=== PATIENT | male | born 1965 | race Caucasian/White ===

== ENCOUNTER 2024-08-23 14:52 | Outpatient (AMB) | payer OTHER, SELFPAY ==
--- NOTE | 2024-08-23 14:56 | MHC.PC.OV ---
Vital Signs 08/23/24 15:03 Height 5 ft 9.29 in Weight 241 lb BMI 35.3 BP 108/80 Blood Pressure Location Lt brachial Position Sitting Respiration 14 Pulse 73 Pulse Source Pulse Oximeter Pulse Oximetry (%) 96 Oxygen Delivery Method Room Air Intake Visit Reasons: [facility] / [facility] (get ins) Intake Note: New patient visit. Requesting test/referral for Parkinson Buttonhole Marker Required: No Allergies codeine Allergy (Unknown, Verified 08/23/24 14:57) Unknown Medication List - Last Reconciled 08/23/24 by Zarina Infante PA-C No Known Home Meds Tobacco use date assessed: 08/23/24 Dental Screening Dental Screen Date: 08/23/24 Did you have a dental visit in the last 12 months?: Yes Did you have a dental problem in the last 6 months where you did not have access to dental care?: No Was dental information given to patient?: Patient has dentist HPI [facility] / [facility] (get ins) HPI Details Patient is a 58-year-old male who presents [facility] to [facility] He is transferring from [facility]. He has a significant past medical history of per pt previous TIA about 10 years ago (but never got this investigated) , hyperlipidemia, prediabetes and anxiety. Neuro: When I last saw him I did refer him to Neurology for memory issues and he states that they did call him but he never followed up with this. This was a couple years ago. He also was referred to the counselor at the time for a Reading test but this was never completed. He states that he still does struggle at times with remembering things. He does not get lost in his able to function at work but finds himself forgetting where he put things and sometimes what he meant to say. He tells me today that he is worried that he could have dementia/Parkinson's. He has noted tremors for the last couple years and states over the last year he is having a bit more tremors. He is dropping things. He does feel uncoordinated at times but it gets better. He is a very vague historian. He had an MRI 12/17/2022 Impression: Mild supratentorial white matter signal abnormality compatible with chronic microangiopathic/small-vessel ischemic change. No evidence of parenchymal volume loss/ atrophy. He states that years ago when he had those stroke like symptoms he did not bother going to the hospital because it was very short and fleeting. He states that he was driving when all of a sudden his face felt droopy and he had garbled speech. He states that he raised his left arm above his head in the symptoms resolved. He did not think much of this other than he had just had a stroke. He states that people probably would have thought he was taking it so he did not do anything with this. His brother has Parkinson and his father passed Parkinsons at 72. CV: Blood pressure today in the office is 108/80. Psych: Has a history of anxiety and states that this is currently related to financial stress/burden and his job. In the winter his job is slow but it was now just picking up. He states that he has to travel for his job in its stresses him to leave his at home. He is not interested in medication. Colonoscopy: He was referred in 2022 but never did this. PSA: Overdue [facility] Medical History (Updated 08/23/24 @ 15:22 by Zarina Infante PA-C) Fusion of fingers of left hand Severe obesity (BMI 35.0-35.9 with comorbidity) Prediabetes Hyperlipidemia Surgical History (Updated 08/23/24 @ 14:13 by Jocelyn Ayala CMA) No pertinent past surgical history Family History (Updated 08/23/24 @ 15:07 by Jocelyn Ayala CMA) Mother Alzheimer disease Father Diabetes Mental disability Parkinsons disease FH: mental illness Brother Substance use Social History Housing: House Alcohol intake: current Patient Tobacco Use Status: Former Tobacco user Cigarettes Per Day: 6 Years Smoked: 12 e-Cigarette/Vaping Use: Never Used Second Hand Smoke Exposure: No service: No Current occupational status: employed and unemployed Current occupational exposures/hazards: No Cognitive needs: No Hearing needs: No Vision needs: Yes (glasses) Questionnaire PHQ-9 Over the last 2 weeks, how often have you been bothered by any of the following problems? 1. Little interest or pleasure in doing things: not at all 2. Feeling down, depressed, or hopeless: not at all 3. Trouble falling or staying asleep, or sleeping too much: not at all 4. Feeling tired or having little energy: not at all 5. Poor appetite or overeating: not at all 6. Feeling bad about yourself - or that you are a failure or have let yourself or your family down: not at all 7. Trouble concentrating on things, such as reading the newspaper or watching television: not at all 8. Moving or speaking so slowly that other people could have noticed. Or the opposite - being so fidgety or restless that you have been moving around a lot more than usual: not at all 9. Thoughts that you would be better off or of hurting yourself in some way: not at all Total score: 0 Depression Screening Interpretation: Negative Depression Screening Done: Yes 85452 - PHQ-9 Billing: Yes Source: Developed by Drs. Cas Delgadillo, Gabbi Balderas, Elijah Baez and colleagues, with an educational renetta from [employer]. Thrive Questionnaire Date Thrive assessed: 08/23/24 I am a: Patient What is your living situation today?: I have a steady place to live Within the past 12 months, did the food you bought not last and you didn't have the money to get more?: Sometimes True Within the past 12 months, did you worry whether your food would run out before you got money to buy more?: Sometimes True Do you have trouble paying for medicines?: I choose not to answer this question Do you have trouble getting transportation to medical appointments?: No Do you have trouble paying your heating and electricity bill?: Yes Do you have trouble taking care of your child, family member or friend?: I choose not to answer this question Do you have trouble with day-to-day activities such as bathing, preparing meals, shopping, managing finances, etc.?: No Are you currently unemployed and looking for a job?: Yes Are you interested in more education?: No Please select the resources that you would like help with: Utilities Currently or been in a relationship where the following occur: I choose not to answer THRIVE Score: 3 AUDIT C Alcohol Use Questionnaire (AUDIT-C) 1. How often do you have a drink containing alcohol?: 2-4 times a month 2. How many drinks containing alcohol do you have on a typical day when you are drinking?: 3 or 4 3. How often do you have six or more drinks on one occasion?: Less than monthly Total Score: 4 MONIK-7 AMB Questionnaire MONIK-7 Date MONIK - 7 assessed: 08/23/24 Feeling nervous, anxious, or on edge: 0 = Not at all Not being able to stop or control worryin = More than half the days Worrying too much about different things: 2 = More than half the days Trouble relaxin = More than half the days Being so restless that it is hard to sit still: 0 = Not at all Becoming easily annoyed or irritable: 2 = More than half the days Feeling afraid as if something awful might happen: 2 = More than half the days Total MONIK-7 score (0-4 normal; 5-9 mild; 10-14 moderate; 15-21 severe): 10 Source: Developed by Drs. Cas Delgadillo, Gabbi Balderas, Elijah Baez and colleagues, with an educational renetta from [employer]. MONIK-7 Assessment Billing MONIK-7 Assessment Tool: MONIK-7 Assessment 31756 Physical exam (Primary Care) Vital Signs: Last Vital Signs Pulse 73 08/23/24 15:03 Resp 14 08/23/24 15:03 BP 108/80 08/23/24 15:03 Pulse Ox 96 08/23/24 15:03 Oxygen Delivery Method Room Air 08/23/24 15:03 BMI result Body Mass Index 35.3 Tobacco/Smoking Status: Tobacco use Status Tobacco use date assessed 08/23/24 08/23/24 15:02 Patient Tobacco Use Status Former Tobacco user 08/23/24 15:02 e-Cigarette/Vaping Use Never Used 08/23/24 15:02 PHQ-9: PHQ-9 Score PHQ-9: Total score 0 08/23/24 15:02 Depression Screening Interpretation: Negative Currently or been in a relationship where the following occur: I choose not to answer Const Orientation/consciousness: patient oriented x3 HENMT Ears: hearing grossly normal bilaterally Neck Thyroid: Thyroid normal Lymphatic: no lymphadenopathy noted Resp Auscultation: clear to auscultation bilaterally Cardio Rate: regular rate Rhythm: regular rhythm Heart sounds: S1 normal heart sound present and S2 normal heart sound present GI Inspection: Yes normal to inspection Palpation (GI): Soft to palpation and Other GI palpation findings present (nontender, no cva tenderness) Auscultation: normoactive bowel sounds Rectal Exam - Male: Yes deferred Skin General skin exam: no rashes or lesions noted Neuro General: patient oriented x3, gait normal and no focal motor deficits Coding Level of Care Code Est Pt Level 4 (29005) Complex EM visit Add On G2211 Diagnoses Occasional tremors R25.1 Memory changes R41.3 Hyperlipidemia E78.5 Prediabetes R73.03 Generalized anxiety disorder F41.1 Additional Codes MONIK-7 Assessment Billing - MONIK-7 Assessment Tool: MONIK-7 Assessment 52710 ([id number]) PHQ-9 - 54247 - PHQ-9 Billing: Yes ([id number]) Assessment & Plan Assessment & Plan (1) Occasional tremors: Code(s): R25.1 - Tremor, unspecified Category: Medical Plan: Referral to neurology (2) Memory changes: Code(s): R41.3 - Other amnesia Category: Medical Plan: As above. Labs ordered. MRI reviewed. (3) Hyperlipidemia: Code(s): E78.5 - Hyperlipidemia, unspecified Category: Medical Plan: Lipids ordered. We will follow up pending test results. Does not like the idea of taking medication. (4) Prediabetes: Code(s): R73.03 - Prediabetes Category: Medical Plan: A1c ordered. (5) Generalized anxiety disorder: Code(s): F41.1 - Generalized anxiety disorder Category: Medical Plan: Stable. Does not wish to change this. Plan Patient refuses colonoscopy. We will do Cologuard. Ordered today. Orders: Orders Comprehensive Glover. Panel Fast Today E78.5 - Hyperlipidemia, unspecified, R06.83 - Snoring, R25.1 - Tremor, unspecified, R41.3 - Other amnesia, R73.03 - Prediabetes Lipid Panel Today E78.5 - Hyperlipidemia, unspecified, R06.83 - Snoring, R25.1 - Tremor, unspecified, R41.3 - Other amnesia, R73.03 - Prediabetes Lyme IgG/IgM w/reflex to WB Today E78.5 - Hyperlipidemia, unspecified, R06.83 - Snoring, R25.1 - Tremor, unspecified, R41.3 - Other amnesia, R73.03 - Prediabetes IRON PROFILE Today E78.5 - Hyperlipidemia, unspecified, R06.83 - Snoring, R25.1 - Tremor, unspecified, R41.3 - Other amnesia, R73.03 - Prediabetes Prostate Specific Antigen Scr Today E78.5 - Hyperlipidemia, unspecified, R06.83 - Snoring, R25.1 - Tremor, unspecified, R41.3 - Other amnesia, R73.03 - Prediabetes, Z01.89 - Encounter for other specified special examinations Complete Blood Count Auto Diff Today E78.5 - Hyperlipidemia, unspecified, R06.83 - Snoring, R25.1 - Tremor, unspecified, R41.3 - Other amnesia, R73.03 - Prediabetes UA CC w/rflx Micro + Cult Today E78.5 - Hyperlipidemia, unspecified, R06.83 - Snoring, R25.1 - Tremor, unspecified, R41.3 - Other amnesia, R73.03 - Prediabetes, Z13.220 - Encounter for screening for lipoid disorders Vitamin B12 and Folate Today E78.5 - Hyperlipidemia, unspecified, R06.83 - Snoring, R25.1 - Tremor, unspecified, R41.3 - Other amnesia, R73.03 - Prediabetes Magnesium Today E78.5 - Hyperlipidemia, unspecified, R06.83 - Snoring, R25.1 - Tremor, unspecified, R41.3 - Other amnesia, R73.03 - Prediabetes Hemoglobin A1c Today E78.5 - Hyperlipidemia, unspecified, R06.83 - Snoring, R25.1 - Tremor, unspecified, R41.3 - Other amnesia, R73.01 - Impaired fasting glucose, R73.03 - Prediabetes Ferritin Today E78.5 - Hyperlipidemia, unspecified, R06.83 - Snoring, R25.1 - Tremor, unspecified, R41.3 - Other amnesia, R73.03 - Prediabetes Referrals Cologuard Test Z12.11 - Encounter for screening for malignant neoplasm of colon Neurology Referral R25.1 - Tremor, unspecified, R41.3 - Other amnesia
[2024-08-23 15:03] VITALS: BP 108/80; PULSE 73; RESP 14; O2SAT 96; BMI 35.3
== END 2024-08-23 15:32 | disposition home or self-care (01) ==
PROVIDERS: PCP Physician Assistant; Visit Provider Physician Assistant
DX: R25.1 Tremor, unspecified (principal); R41.3 Other amnesia; E78.5 Hyperlipidemia, unspecified; R73.03 Prediabetes; F41.1 Generalized anxiety disorder

== ENCOUNTER → 2024-08-23 14:52 | Outpatient (BNVA) | payer OTHER, SELFPAY | PROVIDERS: PCP Physician Assistant; Visit Provider Physician Assistant | DX: R25.1 Tremor, unspecified (principal); R41.3 Other amnesia; R73.03 Prediabetes; F41.1 Generalized anxiety disorder; E78.5 Hyperlipidemia, unspecified | CPT/HCPCS: 96127; 99212 ==

== ENCOUNTER 2024-09-21 10:06 | Outpatient (REF) | payer OTHER, SELFPAY ==
[2024-09-21 11:27] LABS: MANUAL DIFF FLAG NO
[2024-09-21 11:34] LABS: Basophils Percent Auto 0.4 % (0-2); Eosinophils Absolute Auto 0.1 X10*3/uL (0.0-0.4); Eosinophils Percent Auto 0.6 % (0-4); Hematocrit 44.9 % (42.0-52.0); Hemoglobin 14.9 g/dl (14.0-18.0); Imm Gran Abs Auto 0.02 X10*3/uL (0.00-0.03); Imm Gran Pct Auto 0.2 % (0.0-0.4); Lymphocytes Absolute Auto 2.5 X10*3/uL (1.2-4.9); Lymphocytes Percent Auto 30.8 % (20-40); Mean Corpuscular HGB Conc 33.2 g/dl (31.0-36.0); Mean Corpuscular Volume 87.4 fL (80.0-98.0); Mean Platelet Volume 10.5 fL (9.4-12.4); Monocytes Absolute Auto 0.5 X10*3/uL (0.1-1.2); Monocytes Percent Auto 6.2 % (2-11); Neutrophils Percent Auto 61.8 % (45-73); Platelet Count 227 X10*3/uL (160-400); Red Blood Count 5.14 X10*6/uL (4.60-5.80); Red Cell Distribution Width 13.2 % (11.0-16.0); White Blood Count 8.1 X10*3/uL (4.8-10.8)
[2024-09-21 11:47] LABS: Appearance Urine Clear; Color Urine Yellow; Glucose Urine UA Negative (Negative); Leukocyte Esterase Urine Negative (Negative); Nitrite Urine Negative (Negative); PH 5.5 (5.0-9.0); Specific Gravity - Urine 1.025 (1.005-1.025); Urine Blood Negative (Negative); Urine Ketones Negative (Negative); Urine Protein Negative (Neg-Trace)
[2024-09-21 12:09] LABS: Estimated Average Glucose 120 mg/dL; Hemoglobin A1C 151.9185 umol/L; Hemoglobin A1c % 5.8 % (<6.0); Total Hemoglobin (HGBA1C) 3807.9793 umol/L
[2024-09-21 12:33] LABS: Ferritin 203 ng/mL (20-250)
[2024-09-21 12:41] LABS: Alanine Aminotransferase 25 U/L (0-40); Albumin Level 4.1 g/dL (3.5-5.0); Anion Gap 11 (12-20); Aspartate Amino Transferase 27 U/L (5-37); Bilirubin Total 0.5 mg/dL (0.0-1.0); Blood Urea Nitrogen 17 mg/dL (9-16); Calcium 9.1 mg/dL (8.4-10.2); Carbon Dioxide 26 mmol/L (22-29); Chloride 108 mmol/L (96-108); Cholesterol 207 mg/dL (<200); Estimated Glomerular Filt Rate > 60; Glucose Fasting 109 mg/dL (60-99); HDL Cholesterol 45 mg/dL (>40); Iron 89 mcg/dL (45-160); LDL Cholesterol Calculated 140 mg/dL (<100); Magnesium 2.1 mg/dL (1.6-2.6); Percent Iron Saturation 36 % (15-50); Potassium 4.2 mmol/L (3.3-5.1); Sodium 141 mmol/L (135-145); Total Iron Binding Capacity 247 mcg/dL (228-428); Triglycerides 111 mg/dL (<150); Unsaturated Iron Binding 158 ug/dL
[2024-09-21 12:42] LABS: Folate 7.8 ng/mL (> or = 4.0); Prostate Specific Antigen Scr 1.22 ng/mL (<0.05-4.0); Vitamin B12 445 pg/mL (200-900)
[2024-09-21 12:43] LABS: Alkaline Phosphatase 76 U/L (39-117)
[2024-09-22 06:23] LABS: Lyme Abs Screen <0.90 index
== END 2024-09-21 10:07 | disposition home or self-care (01) ==
LOC: HO.WFDLDS 10:06
PROVIDERS: Visit Provider Physician Assistant
DX: R41.3 Other amnesia (principal); R25.1 Tremor, unspecified; R06.83 Snoring; R73.03 Prediabetes; E78.5 Hyperlipidemia, unspecified; Z01.89 Encounter for other specified special examinations; Z13.220 Encounter for screening for lipoid disorders; R73.01 Impaired fasting glucose
CPT/HCPCS: 36415; 80053; 80061; 81003; 82607; 82728; 82746; 83036; 83540; 83735; 84153; 85025; 86617; 86618